=== PATIENT | male | born 1950 | race Caucasian/White ===

== ENCOUNTER 2017-10-04 08:29 | Day surgery (SDC) | payer MEDICARE, BC ==
[~2017-10-04 08:29] MED LIST: Lactated Ringers 1,000 ML IV SCH
[2017-10-04] MEDS ORDERED: Lactated Ringers 1,000 ML IV SCH (09:00)
[2017-10-04] MEDS ORDERED: Propofol 200 MG/20 ML SDV ONE (09:03)
[2017-10-04] MEDS ORDERED: Midazolam 1 MG/ML 2 ML SDV ONE (09:03)
[2017-10-04] MEDS ORDERED: fentaNYL 100 MCG/2 ML SDV ONE (09:03)
--- NOTE | 2017-10-04 11:26 | OR ---
DATE OF PROCEDURE: 10/04/2017 PREOPERATIVE DIAGNOSIS: Colon cancer screening. POSTOPERATIVE DIAGNOSIS: Diverticulosis. PROCEDURE PERFORMED: Colonoscopy to the cecum. ANESTHESIA: IV anesthesia with monitored anesthesia care. INDICATION: This 66-year-old white male is referred for a colonoscopy for colon cancer screening. He says his last colonoscopic exam was done more than 10 years ago. I counseled him for the procedure including risks, alternatives and gave his informed consent to proceed. DESCRIPTION OF PROCEDURE: The patient was placed in the left lateral decubitus position. IV anesthesia was administered by the Anesthesia Service. Time-out was held. A rectal exam was performed, which was unremarkable. The flexible video Olympus colonoscope was introduced through his anus, up his rectum and out his colon all the way to the cecum. En route, we saw multiple left-sided diverticula. There was no bleeding or inflammation associated with any of them. Once the cecum was reached, the scope was slowly withdrawn examining the mucosa throughout. No additional mucosal abnormalities were noted. The scope was retroflexed in the rectum with the distal rectum appearing unremarkable. The scope was straightened and removed. He tolerated the procedure well. Rakan Haque MD /[id number]
== END 2017-10-04 11:45 | disposition home or self-care (01) ==
LOC: JP.SDS 08:29
PROVIDERS: ATTEND Surgery
DX: Z12.11 Encounter for screening for malignant neoplasm of colon (principal); K57.30 Diverticulosis of large intestine without perforation or abscess without bleeding; I10 Essential (primary) hypertension; E66.9 Obesity, unspecified; Z88.8 Allergy status to other drugs, medicaments and biological substances
CPT/HCPCS: G0121; J2250; J2704; J3010; J7120